=== PATIENT | female | born 1995 | race Two or more races ===

== ENCOUNTER 2023-03-21 20:29 | Emergency (ER) | payer MEDICAID, OTHER ==
[~2023-03-21] VITALS: Ht 162.6 cm; Wt 113.2 kg
[~2023-03-21 20:29] MED LIST: ACET-784; AMOX500T2
[2023-03-21 20:38] VITALS: BP 120/72
== END 2023-03-21 22:45 | disposition left against medical advice (07) ==
LOC: EMS 20:32
DX: Z53.21 Procedure and treatment not carried out due to patient leaving prior to being seen by health care provider (principal)
CPT/HCPCS: 99281; Z7502